=== PATIENT | female | born 1945 | race Caucasian/White ===

== ENCOUNTER → 2021-06-20 | Outpatient (CLI) | payer MEDICARE | END | disposition home or self-care (01) | LOC: LABPAT 11:33 | PROVIDERS: ATTEND Orthopaedic Surgery | DX: Z01.812 Encounter for preprocedural laboratory examination (principal); M16.11 Unilateral primary osteoarthritis, right hip | CPT/HCPCS: 87070 ==

== ENCOUNTER 2021-07-01 11:17 | Day surgery (SDC) | payer MEDICARE ==
[2021-06-26 08:29] VITALS: BMI 28.3
--- NOTE | 2021-06-30 11:30 | HP ---
HISTORY AND PHYSICAL DATE OF SURGERY: 07/01/2021 Minda Tyler is a 76-year-old patient seen with symptomatic right hip osteoarthritis. After we had treatment options discussed with her, she elected to proceed with direct anterior right total hip arthroplasty. Consent was obtained. Medical clearance was provided by Dr. Peterson. PAST MEDICAL HISTORY: Hypertension, hyperlipidemia. PAST SURGICAL HISTORY: Left total hip arthroplasty, ORIF left ankle, appendectomy, tonsillectomy, hysterectomy, cataract surgery. DAILY MEDICATIONS: Hydrochlorothiazide, Pravachol, multivitamin. ALLERGIES: CODEINE, SULFA. SOCIAL HISTORY: She denies tobacco use. PHYSICAL EVALUATION OF THE RIGHT HIP: She has limited range of motion with severe pain. Positive hip impingement sign. Straight-leg raise negative. Distal neurovascular exam is intact. Radiographs of the right hip reveal severe osteoarthritic changes. IMPRESSION: 1. Right hip osteoarthritis. 2. Hypertension. 3. Hyperlipidemia. PLAN: Direct anterior right total hip arthroplasty. MMODL / IJN: [id number] /
[~2021-07-01 11:17] MED LIST: ACETAMINOPHEN TAB 500 MG TAB PO PRN; MELOXICAM 7.5 MG TAB PO PRN; ROPIVACAINE/EPI/CLONIDINE/KET 50 ML SYRINGE MISCELLANE PRN; TRANEXAMIC ACID 1,000 MG in SODIUM CHLORIDE 0.9% 100 ML IVPB PRN
[2021-07-01] MEDS ORDERED: ONDANSETRON 4 MG/2 ML VIAL ONE (12:17)
[2021-07-01] MEDS ORDERED: LACTATED RINGERS 1,000 ML IV ONE ×4 (12:23→15:15)
[2021-07-01] MEDS ORDERED: ONDANSETRON 4 MG/2 ML VIAL IVP ONE (12:24)
[2021-07-01] MEDS ORDERED: DEXAMETHASONE SOD PHOSPHATE 4 MG/ML 1 ML VIAL IVP ONE (12:24)
[2021-07-01] MEDS ORDERED: fentaNYL (PF) 50 MCG/ML 2 ML AMP ONE (12:47)
[2021-07-01] MEDS ORDERED: LIDOCAINE 1% INJ 10MG/ML (20 ML MDV) ONE (12:47)
[2021-07-01] MEDS ORDERED: ROCURONIUM 10 MG/ML (5 ML VIAL) IV ONE (12:47)
[2021-07-01] MEDS ORDERED: HYDROmorphone (PF) 1 MG/ML ONE (12:47)
[2021-07-01] MEDS ORDERED: SUCCINYLCHOLINE CHLORIDE 100 MG/5 ML SYR IV ONE (12:47)
[2021-07-01] MEDS ORDERED: NEOSTIGMINE 1 MG/ML 10 ML VIAL ONE (12:47)
[2021-07-01] MEDS ORDERED: GLYCOPYRROLATE 0.2 MG/ML 2 ML VIAL ONE (12:47)
[2021-07-01] MEDS ORDERED: PROPOFOL 10 MG/ML 20 ML VIAL IV ONE (12:47)
[2021-07-01] MEDS ORDERED: ceFAZolin 1,000 MG in SODIUM CHLORIDE 0.9% 1,000 ML IRRIGATION ONE (13:18)
--- NOTE | 2021-07-01 14:28 | FL ---
Fluoroscopy HISTORY: Anterior hip replacement 10 seconds fluoroscopy time supplied to the referring clinician. 2 intraoperative C-arm images docum ent the procedure. See dictated report from orthopedic surgery.
--- NOTE | 2021-07-01 14:31 | P.OP ---
Date of Procedure: 07/01/21 Preoperative Diagnosis: Right hip osteoarthritis Postoperative Diagnosis: Right hip osteoarthritis Procedure(s) Performed: Direct anterior right total hip arthroplasty Implants: 1. Depuy Corail size 12 KA with collar press-fit femoral stem 2. Depuy pinnacle 60 mm multi-hole press-fit acetabular shell 3. Depuy pinnacle polyethylene acetabular liner +4 neutral 36 mm ID 60 mm OD 4. Biolox delta ceramic femoral head +1.5 36 mm Anesthesia: LUCRETIAA, local Surgeon: David Lee Reconciliation Accountant #1: Everette Freitas Estimated Blood Loss (ml): 125 Pathology: other (Femoral head) Condition: stable Disposition: PACU Indications for Procedure: 76-year-old patient seen with symptomatic right hip osteoarthritis. After treatment options were discussed, she elected to proceed with total hip arthroplasty. Operative Findings: see description of procedure Description of Procedure: The patient was taken to the operative suite. Patient underwent a general anesthetic by the department of anesthesia. Patient was then transferred to the [place] table. Patient was given preoperative IV antibiotics and TXA. Both lower extremities were placed in standard leg spars. The hip was then prepped and draped in the normal sterile orthopedic fashion. A standard anterior incision was made beginning 3 cm lateral and 1 cm distal to the ASIS extending 10 cm. Dissection was then carried down through the subcutaneous soft tissues down to the fascia overlying the tensor fascia johanna. An incision was now made through the fascia. Careful dissection was taken down exposing the tensor fascia johanna muscle. A Cobra retractor was now placed along the medial femoral neck and a second one along the lateral femoral neck. The venous circumflex vessels were now identified, cauterized and clipped. We identified the anterior hip capsule. An incision was made through the hip capsule along the lateral border. I performed a partial anterior capsulectomy. Retractors were now placed around the femoral neck itself. A femoral neck cut was now made with a sagittal saw. It was completed with an osteotome at the lateral neck area. The femoral head was now removed without difficulty. The extremity was now rotated to 60 of external rotation. It was locked in position. Residual labrum was now debrided out. Serial reaming was performed of the acetabulum while Everette MENDEZ assisted holding an anterior retractor for exposure. Once we reached the appropriate size and a trial was position and fit nicely. The appropriate size was now chosen opened and made available. It was introduced into the acetabulum without difficulty. The C-arm/fluoroscopy was now brought into the operative field. We made sure we had a true AP pelvic view. We now under direct C- arm/fluoroscopy introduced into the acetabular component with appropriate version and inclination. I held the cup in appropriate position well Ricardo MENDEZ used a mallet to seat the acetabular component. I noted the component now to be well seated and stable. Acetabular cup introduce her was removed. The C-arm was pulled back. An appropriate liner was introduced and clicked into position. It was felt to be stable. At this point retractors were removed. The extremity was now placed into 140 external rotation with no traction. The leg was now dropped to the ground and adducted. Appropriate retractors were now positioned along the proximal femur. We also placed our femoral look into position. Additional capsular releasing was performed to gain access to the proximal femur. We now used a box osteotome. A canal finder was now utilized. Serial broaching was now performed with the assistance of Everette MENDEZ tapping the broaches down with a mallet while held the broach in appropriate rotation and position. This was done until we reached the appropriate size with good overall rotational stability. Appropriate calcar planing was performed. A trial head/neck was placed into position. The hip was now reduced. The C- arm/fluoroscopy was brought back into the operative field. I obtained an AP pelvis demonstrating reasonable leg length alignment. The trial components appeared appropriately sized and adequate position The C-arm/fluoroscopy was pulled back. Retractors were repositioned and the hip was dislocated. The leg was again taken down to the ground and adducted. Appropriate retractors were repositioned as well as the femoral hook. All trial components were removed. The femoral implant was opened along with the femoral head. The femoral implant was introduced on the appropriate handle into our pre-broached area. I held the component position while Everette MENDEZ used a mallet to seat the femoral component. The femoral component was now noted to be well seated and stable.. The femoral head was introduced with good positioning and fixation noted. Retractors were now removed. The hip was now reduced. There appeared be good positioning of the hip confirmed on intraoperative fluoroscopy. Spot films were obtained to document this. A second gram of TXA was given. The deep and superficial soft tissues were infiltrated with local analgesic. Bipolar cautery had been utilized intermittently through the procedure for hemostasis. The wound was irrigated copiously with pulse lavage mechanical irrigation. The fascia was repaired with Vicryl suture. The subcutaneous soft tissues were repaired in layers with Vicryl suture. The skin was approximated with pernio/Dermabond. Sterile dressings were applied. Patient was then awakened, transferred to a bed and taken to recovery in stable condition. Everette MENDEZ assisted with the complex procedure.
[2021-07-01] MEDS ORDERED: HYDROmorphone 0.5 MG/0.5 ML SYRINGE IVP PRN ×2 (14:32)
[2021-07-01] MEDS ORDERED: HYDROcodone/APAP 5-325MG 1 EACH TAB PO PRN ×2 (14:32)
[2021-07-01] MEDS ORDERED: ONDANSETRON 4 MG/2 ML VIAL IVP PRN (14:32)
[2021-07-01] MEDS ORDERED: NALOXONE 0.4 MG/ML 1 ML VIAL IV PRN (14:32)
[2021-07-01] MEDS ORDERED: HYDROmorphone 0.2 MG/1 ML SYRINGE IM PRN (14:32)
[2021-07-01] MEDS ORDERED: HYDROmorphone 0.5 MG/0.5 ML SYRINGE IVP ONE (15:08)
[2021-07-01] MEDS ORDERED: hydrALAZINE HCL 20 MG/ML 1 ML VIAL IVP ONE (16:48)
[2021-07-01] MEDS ORDERED: hydrALAZINE HCL 20 MG/ML 1 ML VIAL ONE (16:50)
[2021-07-01] MEDS ORDERED: LACTATED RINGERS 1,000 ML IV SCH (18:01)
[2021-07-01 18:36] VITALS: RESP 18
[2021-07-01 19:16] LABS: Glucose,Whole Blood 142 mg/dL (75-99)
--- NOTE | 2021-07-01 23:40 | P.CONS ---
History of Present Illness - Reason for Consult Consult date: 07/01/21 post op medical management Requesting physician: David Lee - Chief Complaint hip surgery - History of Present Illness 76 year old female with hypertension patient presented for scheduled right total hip arthroplasty , tolerated procedure well, no observed immediate post op complications. denies any chest pain , trouble breathing, nausea , vomiting, abd pain . right hip pain is well controlled and tolerated. she currently denies any medical concerns Review of Systems Pertinent positives as noted in HPI. All other systems were reviewed and are negative Past Medical History Past Medical History: Hyperlipidemia, Hypertension, Osteoarthritis (OA) Additional Past Medical History / Comment(s): hx. of heart murmur History of Any Multi-Drug Resistant Organisms: None Reported Past Surgical History: Appendectomy, Hysterectomy, Joint Replacement, Tonsillectomy Additional Past Surgical History / Comment(s): ORIF left ankle, left hip replaced after fx., repair vag. prolapse, right anterior hip 07/01/21 Past Anesthesia/Blood Transfusion Reactions: No Reported Reaction Past Psychological History: No Psychological Hx Reported Smoking Status: Never smoker Past Alcohol Use History: Occasional Past Drug Use History: None Reported - Past Family History Mother Family Medical History: No Reported History Medications and Allergies Home Medications Medication Instructions Recorded Confirmed Type Cholecalciferol [Vitamin D3 (25 25 mcg PO DAILY 06/24/21 06/24/21 History Mcg = 1000 Iu)] Hydrochlorothiazide 12.5 mg PO DAILY 06/24/21 06/24/21 History [hydroCHLOROthiazide] Krill/Om-3/Dha/Epa/Phospho/Ast 1 each PO DAILY 06/24/21 06/24/21 History [Megared Jackson-3 Krill 750 mg] Multivitamins, Thera [Multivitamin 1 tab PO DAILY 06/24/21 06/24/21 History (formulary)] Pravastatin Sodium [Pravachol] 40 mg PO HS 06/24/21 06/24/21 History Aspirin [Adult Low Dose Aspirin EC] 81 mg PO BID #60 tab 07/01/21 Rx Docusate [Colace] 100 mg PO DAILY #30 capsule 07/01/21 Rx HYDROcodone/APAP 5-325MG [[place] 1 tab PO Q6HR PRN 3 Days #32 tab 07/01/21 Rx 5-325] Allergies Allergy/AdvReac Type Severity Reaction Status Date / Time Sulfa (Sulfonamide Allergy Rash/Hives Verified 07/01/21 11:54 Antibiotics) codeine AdvReac Nausea & Verified 07/01/21 11:54 Vomiting Physical Exam Vitals: Vital Signs Temp Pulse Resp BP Pulse Ox 07/01/21 18:34 96.0 F L 78 18 145/74 100 07/01/21 18:11 52 L 16 141/68 95 07/01/21 17:30 52 L 16 152/68 07/01/21 17:10 52 L 16 142/66 98 07/01/21 16:55 51 L 16 176/87 97 07/01/21 16:40 49 L 16 206/86 98 07/01/21 16:16 47 L 16 160/67 94 L 07/01/21 16:01 49 L 16 154/66 95 07/01/21 15:46 73 16 167/72 100 07/01/21 15:31 48 L 16 157/71 100 07/01/21 15:16 51 L 16 196/81 100 07/01/21 15:01 65 18 184/79 100 07/01/21 14:46 96.8 F L 66 12 153/73 96 07/01/21 12:25 186/93 07/01/21 12:21 98.0 F 76 16 193/94 100 Intake and Output 07/01/21 07/01/21 07/01/21 06:59 14:59 22:59 Intake Total 951 400 Output Total 125 Balance 826 400 Intake: IV 951 400 Output: Estimated Blood Loss 125 Other: Weight 87.5 kg Constitutional: No acute distress, conversant, pleasant Eyes: Anicteric sclerae, moist conjunctiva, Pupils equal round reactive to light ENMT: NC/AT Oropharynx clear, no erythema, or exudates Neck: Supple, no masses, or JVD No carotid bruits No thyromegaly Lungs: Clear to auscultation Clear to percussion Normal respiratory effort, no accessory muscle use Cardiovascular: Heart regular in rate and rhythm, soft murmurs, no gallops, or rubs No peripheral edema Abdominal: Soft Nontender, no guarding, rebound or rigidity Abdomen moving with respiration Normoactive bowel sounds No hepatomegaly, No splenomegaly No palpable mass No abdominal wall hernia noted Skin: Normal temperature, tone, texture, turgor No induration No subcutaneous nodules No rash, lesions No ulcers Extremities: No digital cyanosis No clubbing Pedal pulses intact and symmetrical Radial pulses intact and symmetrical No calf tenderness Psychiatric: Alert and oriented to person, place and time Appropriate affect fair judgement Neuro Muscles Strength 5/5 in bilateral upper extremities, and left lower extremity, right lower leg exam limited to surgery Sensation to light touch grossly present throughout Cranial nerves II-XII grossly intact No focal sensory deficits Lymphatics: no palpable cervical or supraclavicular , or inguinal lymph nodes Results Labs: Abnormal Lab Results - Last 24 Hours (Table) 07/01/21 Range/Units 19:14 POC Glucose (mg/dL) 142 H (75-99) mg/dL Assessment and Plan Assessment: Right total hip arthroplasty status post surgery postoperative day 0 Pain control and DVT prophylaxis per orthopedics Hypertension resume home blood pressure meds hydrochlorothiazide Hyperlipidemia resume statin Follow-up CBC and BMP in the morning Thank you for allowing us to participate in the care of this patient. Do not hesitate to contact us with questions. Someone can be reached from the [facility] hospitalist group at all hours of the day at [phone].
[2021-07-02] MEDS ORDERED: HYDROmorphone 0.5 MG/0.5 ML SYRINGE IVP PRN (07:00)
--- NOTE | 2021-07-02 08:41 | P.PN ---
Subjective Progress Note Date: 07/02/21 Principal diagnosis: Right hip osteoarthritis Patient was seen at bedside this morning resting comfortably lying semirecumbent in bed. Patient says she is feeling good this morning. Patient says she is wanting to go home. Patient says she does have a walker at home. She says she does get up this morning to the bathroom and felt okay walking around. Patient denies any lightheadedness/dizziness. Patient says she is not in any pain and has not taken any pain medication. Patient has not had bowel movement yet. Patient got up with physical therapy yesterday in recovery and did well, however, patient was somewhat lightheaded/dizzy at that time. Patient denies chest pain, fever, shortness breath, nausea,, loss bowel/bladder control. Objective - Vital Signs Vital signs: Vital Signs Temp 98.4 F 07/02/21 07:39 Pulse 86 07/02/21 07:39 Resp 18 07/02/21 07:39 BP 129/66 07/02/21 07:39 Pulse Ox 99 07/02/21 07:39 Intake & Output 07/01/21 07/02/21 07/02/21 18:59 06:59 18:59 Intake Total 1351 Output Total 125 Balance 1226 Weight 87.5 kg 87.5 kg Intake: IV 1351 Output: Estimated Blood Loss 125 Other: Voiding Method Toilet - Exam Right hip: Incision is clean, dry, and intact. The silver foam dressing is in good condition. There is minimal soft tissue swelling and ecchymosis surrounding the medial and lateral aspects of the incision. Calf is soft, no tenderness with palpation. Plantar flexion, dorsiflexion, EHL, FHL are intact. Sensory exam to light touch throughout the extremity is intact, dorsal pedis pulses 2+. - Labs Labs: Abnormal Lab Results - Last 24 Hours (Table) 07/01/21 Range/Units 19:14 POC Glucose (mg/dL) 142 H (75-99) mg/dL Assessment and Plan Assessment: Right hip osteoarthritis Postoperative day #1 status post right total hip arthroplasty Plan: 1. Right hip osteoarthritis - right total hip arthroplasty performed yesterday, 07/01/2021. Patient stable at bedside this morning. Plan discharge home today with health services 2. Appreciate medical management 3. Pain management - [place] 4. DVT prophylaxis - Lovenox in hospital. Going home with aspirin 81 mg twice a day 30 days 5. GI prophylaxis - going home with Colace 6. PT/OT - weightbearing as tolerated with walker for assistance 7. Encourage incentive spirometer use 8. Discharge planning - plan discharge home today with health services Time with Patient: Less than 30
[2021-07-02 08:59] LABS: HCT 35.5 % (34.0-46.0); HGB 11.7 gm/dL (11.4-16.0); MCH 30.2 pg (25.0-35.0); MCHC 32.9 g/dL (31.0-37.0); MCV 91.7 fL (80.0-100.0); Platelet Count 192 k/uL (150-450); RBC 3.87 m/uL (3.80-5.40); WBC 9.7 k/uL (3.8-10.6)
[2021-07-02] MEDS ORDERED: ENOXAPARIN 30 MG/0.3 ML SYRINGE SQ SCH (09:00)
[2021-07-02] MEDS ORDERED: hydroCHLOROthiazide 12.5 MG CAP PO SCH (09:00)
[2021-07-02 09:13] LABS: AST 37 U/L (14-36); African American GFR (CKD) >90 (>60 ml/min/1.73 sqM); Albumin/Globulin Ratio 1.1; Alkaline Phosphatase 48 U/L (38-126); Anion Gap 6 mmol/L; Blood Urea Nitrogen 18 mg/dL (7-17); Calcium 8.6 mg/dL (8.4-10.2); Carbon Dioxide 24 mmol/L (22-30); Chloride 101 mmol/L (98-107); Globulin 2.8 g/dL; Glucose 119 mg/dL (74-99); Magnesium 1.8 mg/dL (1.6-2.3); Non-African American GFR(CKD) 85 (>60 ml/min/1.73 sqM); Potassium 4.1 mmol/L (3.5-5.1); Sodium 131 mmol/L (137-145); Total Bilirubin 0.7 mg/dL (0.2-1.3); Total Protein 5.8 g/dL (6.3-8.2)
[2021-07-02 09:19] LABS: ALT 28 U/L (4-34)
--- NOTE | 2021-07-02 11:22 | P.PN ---
<Gabriel Campoverde - Last Filed: 07/02/21 16:43> Subjective Progress Note Date: 07/02/21 Hospital course: Patient is a very pleasant 76-year-old female with a past medical history of hypertension, hyperlipidemia and osteoarthritis. She is currently admitted under orthopedic surgery team status post right total hip arthroplasty. We have been consulted to follow along for continued medical management throughout patient's hospitalization. Physical exam: Patient was seen and fully evaluated at the bedside this morning. She was sitting up in the chair and appeared to be doing well. Patient reports pain is controlled and right hip and denies having any numbness/tingling/weakness of her right lower extremity. Patient also reports having a good appetite with no postoperative nausea or vomiting. Patient reports she has been ambulatory with walker to and from restroom without any difficulties. Morning labs reviewed showing mild hyponatremia with sodium of 131 otherwise no significant abnormal ities. Postoperative hemoglobin stable at 11.7. Vital signs reviewed and stable. General: Nontoxic, no distress and appears stated age. Derm: Skin warm and dry, normal coloration for ethnicity. Head: Atraumatic, normocephalic and symmetric. Eyes: EOMs intact, no lid lag, and anicteric sclera Mouth: no lip lesions, mucus membranes moist Cardiovascular: regular rate and rhythm with normal S1S2, no murmur, positive posterior tibial pulses bilaterally, and cap refill < 2 seconds. Lungs: Respirations even, regular, and unlabored on room air. Lungs CTA bilaterally, no rhonchi, no rales, no wheezing, and no accessory muscle usage. Abdominal: soft, nontender to palpation, no guarding, no appreciable organomegaly Ext: ROM intact. No gross muscle atrophy, no edema, no contractures Neuro: Speech clear, face symmetrical and CN II-XII grossly intact with no noted focal neuro deficits Psych: Alert and oriented to person, place, time, and situation. Appropriate and pleasant affect. Assessment and Plan of Care: Status post an anterior right total hip arthroplasty completed on 07/01/[address] Lee -Management per primary orthopedic surgery team. -PT/OT, weightbearing, pain management, wound care, and DVT prophylaxis per primary admitting orthopedic surgery team. Hypertension -Monitor vital signs and continue daily medication regimen with hydrochlorothiazide. Hyperlipidemia -Continue daily medication regimen with pravastatin. Thank you for allowing us to participate in the care of this pleasant patient. Do not hesitate to contact us with questions. Someone can be reached from the [facility] hospitalist group all hours of the day at [phone] or via perfect serve. Objective - Vital Signs Vital signs: Vital Signs Temp 98.4 F 07/02/21 07:39 Pulse 86 07/02/21 07:39 Resp 18 07/02/21 07:39 BP 129/66 07/02/21 07:39 Pulse Ox 99 07/02/21 07:39 Intake & Output 07/01/21 07/02/21 07/02/21 18:59 06:59 18:59 Intake Total 1351 Output Total 125 Balance 1226 Weight 87.5 kg 87.5 kg Intake: IV 1351 Output: Estimated Blood Loss 125 Other: Voiding Method Toilet Toilet - Labs CBC & Chem 7: 07/02/21 08:40 07/02/21 08:40 Labs: Abnormal Lab Results - Last 24 Hours (Table) 07/01/21 07/02/21 Range/Units 19:14 08:40 Sodium 131 L (137-145) mmol/L BUN 18 H (7-17) mg/dL Glucose 119 H (74-99) mg/dL POC Glucose (mg/dL) 142 H (75-99) mg/dL AST 37 H (14-36) U/L Total Protein 5.8 L (6.3-8.2) g/dL Albumin 3.0 L (3.5-5.0) g/dL <Shiloh Franklin - Last Filed: 07/03/21 07:59> Subjective I reviewed the documentation as provided by the ASHU above, who is the original author of this note. I agree with the documented assessment and plan, with the following changes: none Objective - Vital Signs Vital signs: Vital Signs Temp 98.1 F 07/02/21 14:00 Pulse 84 07/02/21 14:00 Resp 18 07/02/21 14:00 BP 112/66 07/02/21 14:00 Pulse Ox 97 07/02/21 14:00 Intake & Output 07/02/21 07/03/21 07/03/21 18:59 06:59 18:59 Other: Voiding Method Toilet - Labs CBC & Chem 7: 07/02/21 08:40 07/02/21 08:40 Labs: Abnormal Lab Results - Last 24 Hours (Table) 07/02/21 Range/Units 08:40 Sodium 131 L (137-145) mmol/L BUN 18 H (7-17) mg/dL Glucose 119 H (74-99) mg/dL AST 37 H (14-36) U/L Total Protein 5.8 L (6.3-8.2) g/dL Albumin 3.0 L (3.5-5.0) g/dL
--- NOTE | 2021-07-02 14:46 | P.DS ---
Providers Date of admission: Right hip osteoarthritis Expected date of discharge: 07/02/21 Attending physician: David Lee Consults: 07/01/21 18:36 Consult Physician Routine Consulting Provider: Venessa Thrasher Consult Reason/Comments: Medical Management s/p right total hip arthroplasty Do you want consulting provider notified?: Yes Primary care physician: Cha Peterson [facility] Course: Date of admission: 07/01/2021 Date of discharge: 07/02/2021 Admission diagnosis: Right hip osteoarthritis Discharge diagnosis: Same Attending physician: Dr. Dr. Lee Surgical procedures: Right total hip arthroplasty Brief history: Patient is a 76-year-old female with a history of progressive primary right hip osteoarthritis. At this point patient has failed conservative treatment measures and has opted to proceed with a elective right total hip arthroplasty. Hospital course: Details of patient's surgery can be found in operative report. Patient tolerated the procedure well and was subsequently transported to orthopedic floor. Patient's orthopeidc and medical care was provided daily. Patient had daily laboratory tests performed for evaluation of overall blood counts. Patient had daily physical therapy to include strengthening range of motion as well as education with walker ambulation. Patient was treated with Lovenox for their postoperative DVT prophylaxis during their inpatient stay. Patient was noted to have a relatively uneventful postoperative course. Patient reported satisfactory pain control with oral pain medications by postoperative day 1. Patient showed satisfactory progress with physical therapy. Patient moved steadily through the program and had no difficulty meeting the goals by postoperative day 1. Given patient's otherwise satisfactory course and having met physical therapy goals, plan is to discharge patient home on postoperative day 1. Discharge condition/disposition: Patient will be discharged home in stable condition. Discharge medications: Instructions are given on resumption of patient's normal daily medications per primary care recommendation, in addition patient will be prescribed [place]; aspirin 81 mg twice a day 30 days; Colace. Discharge instructions: 1. Wound care and infection precautions, keep incision dry and covered while showering, no lotions, creams, moisturizers. No soaking, tubs, pools, hottubs. Do not scrub over the incision. 2. Weight-bear as tolerated with walker / cane until follow-up. 3. Ice and elevate when necessary. Do not exceed 20 minutes per hour with ice pack. 4. Utilize compression sleeve until seen at first follow up appointment. 5. Visiting nursing care. 6. Home physical therapy. 7. Pain meds and anticoagulants per prescription. 8. Pain medication has potential to cause constipation. Increase oral fluid and fiber intake. Contact primary care provider if you have not had a bowel movement within 48 hours after discharge 9. No anti-inflammatory medication until discussed at first post operative visit, this including Motrin, Aleve, Mobic, Diclofenac. 10. Follow up in office at 2 weeks postop with Ricardo Keller PA-C / Everette Freitas PA-C 11. Follow up with your primary care doctor 7-10 days after discharge. 12. Contact [facility] with any questions, . Keep incision clean, dry, intact. Keep silver foam dressing on for 7 days. While showering, cover silver foam dressing with Saran wrap. Silver foam dressing may be removed on 07/08/2021 Medications: Aspirin 81 mg BID x 30 days; [place]; Colace Assessment: Right hip osteoarthritis Procedures: Right total hip arthroplasty Patient Condition at Discharge: Good Plan - Discharge Summary Discharge Rx Participant: No New Discharge Prescriptions: New Aspirin [Adult Low Dose Aspirin EC] 81 mg PO BID #60 tab Docusate [Colace] 100 mg PO DAILY #30 capsule HYDROcodone/APAP 5-325MG [[place] 5-325] 1 tab PO Q6HR PRN 3 Days #32 tab PRN Reason: Pain No Action Multivitamins, Thera [Multivitamin (formulary)] 1 tab PO DAILY Hydrochlorothiazide [hydroCHLOROthiazide] 12.5 mg PO DAILY Pravastatin Sodium [Pravachol] 40 mg PO HS Cholecalciferol [Vitamin D3 (25 Mcg = 1000 Iu)] 25 mcg PO DAILY Krill/Om-3/Dha/Epa/Phospho/Ast [Megared [place]-3 Krill 750 mg] 1 each PO DAILY Discharge Medication List Cholecalciferol [Vitamin D3 (25 Mcg = 1000 Iu)] 25 mcg PO DAILY 06/24/21 [History] Hydrochlorothiazide [hydroCHLOROthiazide] 12.5 mg PO DAILY 06/24/21 [History] Krill/Om-3/Dha/Epa/Phospho/Ast [Megared [place]-3 Krill 750 mg] 1 each PO DAILY 06/24/21 [History] Multivitamins, Thera [Multivitamin (formulary)] 1 tab PO DAILY 06/24/21 [History] Pravastatin Sodium [Pravachol] 40 mg PO HS 06/24/21 [History] Aspirin [Adult Low Dose Aspirin EC] 81 mg PO BID #60 tab 07/01/21 [Rx] Docusate [Colace] 100 mg PO DAILY #30 capsule 07/01/21 [Rx] HYDROcodone/APAP 5-325MG [[place] 5-325] 1 tab PO Q6HR PRN 3 Days #32 tab 07/01/21 [Rx] Follow up Appointment(s)/Referral(s): Jame Keller PAC [PHYSICIAN [facility]] - 2 Weeks Activity/Diet/Wound Care/Special Instructions: Discharge instructions: 1. Wound care and infection precautions, keep incision dry and covered while showering, no lotions, creams, moisturizers. No soaking, tubs, pools, hottubs. Do not scrub over the incision. 2. Weight-bear as tolerated with walker / cane until follow-up. 3. Ice and elevate when necessary. Do not exceed 20 minutes per hour with ice pack. 4. Utilize compression sleeve until seen at first follow up appointment. 5. Visiting nursing care. 6. Home physical therapy. 7. Pain meds and anticoagulants per prescription. 8. Pain medication has potential to cause constipation. Increase oral fluid and fiber intake. Contact primary care provider if you have not had a bowel movement within 48 hours after discharge 9. No anti-inflammatory medication until discussed at first post operative visit, this including Motrin, Aleve, Mobic, Diclofenac. 10. Follow up in office at 2 weeks postop with Ricardo Keller PA-C / Everette Freitas PA-C 11. Follow up with your primary care doctor 7-10 days after discharge. 12. Contact [facility] with any questions, . Keep incision clean, dry, intact. Keep silver foam dressing on for 7 days. While showering, cover silver foam dressing with Saran wrap. Silver foam dressing may be removed on 07/08/2021 Medications: Aspirin 81 mg BID x 30 days; [place]; Colace Discharge Disposition: HOME WITH HOME HEALTH SERVICES
[2021-07-02 15:04] VITALS: BP 112/66; PULSE 84; TEMP 98.1
[2021-07-02] MEDS ORDERED: PRAVASTATIN SODIUM 40 MG TAB PO SCH (21:00)
== END 2021-07-02 15:54 | disposition home health service (06) ==
LOC: OR 11:17 → 4SSUR 14:41 → OR 07-02 15:54
PROVIDERS: ATTEND Orthopaedic Surgery
DX: M16.11 Unilateral primary osteoarthritis, right hip (principal); I10 Essential (primary) hypertension; E78.5 Hyperlipidemia, unspecified; Z96.642 Presence of left artificial hip joint; Z79.899 Other long term (current) drug therapy; Z88.5 Allergy status to narcotic agent; Z88.2 Allergy status to sulfonamides; Z90.49 Acquired absence of other specified parts of digestive tract; Z90.89 Acquired absence of other organs; Z90.710 Acquired absence of both cervix and uterus; Z98.890 Other specified postprocedural states; Z98.49 Cataract extraction status, unspecified eye
CPT/HCPCS: 97116; 97161; 86900; 86901; 80053; 83735; 85027; 86850; 88300; 87635; 73501; 36415; 27130; C1776; J0360; J1100; J0690 ×2; J2405; J1170

== ENCOUNTER → 2021-10-25 | Outpatient (CLI) | payer MEDICARE ==
[2021-10-25 19:12] LABS: Basophils # (A) 0.03 X 10*3/uL (0.00-0.10); Basophils % (A) 0.5 %; Eosinophils # (A) 0.11 X 10*3/uL (0.04-0.35); Eosinophils % (A) 1.7 %; HCT 41.4 % (37.2-46.3); Immature Grans, Automated 0.3 %; Lymphocytes # (A) 2.32 X 10*3/uL (0.90-5.00); Lymphocytes % (A) 35.5 %; MCH 26.8 pg (27.0-32.0); MCHC 31.4 g/dL (32.0-37.0); MCV 85.4 fL (80.0-97.0); Mean Platelet Volume 9.6 fL (9.5-12.2); Monocytes # (A) 0.94 X 10*3/uL (0.20-1.00); Monocytes % (A) 14.4 %; NRBC Per 100 WBC 0 /100 WBCS (0.0-0.0); Neutrophils # (A) 3.12 X 10*3/uL (1.80-7.70); Neutrophils % (A) 47.6 %; Platelet Count 275 X 10*3/uL (140-440); RBC 4.85 X 10*6/uL (4.10-5.20); RDW 14.1 % (11.5-14.5); WBC 6.54 X 10*3/uL (4.50-10.00)
[2021-10-25 19:41] LABS: INR 0.96 (0.90-1.11); Prothrombin Time 10.6 sec (9.9-11.9)
[2021-10-25 20:30] LABS: African American GFR (CKD) 88.9 (60.0-200.0); BUN/Creat Ratio 30.82 Ratio (12.00-20.00); Blood Urea Nitrogen 23.3 mg/dL (9.0-27.0); Calcium 9.4 mg/dL (8.7-10.3); Carbon Dioxide 25.1 mmol/L (20.0-27.5); Non-African American GFR(CKD) 76.7 (60.0-200.0); Potassium 4.3 mmol/L (3.5-5.5)
== END | disposition home or self-care (01) ==
LOC: LABPAT 11:53
PROVIDERS: ATTEND Orthopaedic Surgery
DX: Z01.812 Encounter for preprocedural laboratory examination (principal); M17.11 Unilateral primary osteoarthritis, right knee; Z22.322 Carrier or suspected carrier of Methicillin resistant Staphylococcus aureus
CPT/HCPCS: 36415; 80048; 85025; 85610; 87070

== ENCOUNTER 2021-11-11 10:42 | Day surgery (SDC) | payer MEDICARE ==
[2021-11-06 15:08] VITALS: BMI 27.7
--- NOTE | 2021-11-10 13:52 | HP ---
HISTORY AND PHYSICAL DATE OF SURGERY: 11/11/2021 Minda Tyler is a 76-year-old patient seen with symptomatic right knee osteoarthritis. We discussed options for treatment. She elected to proceed with right total knee arthroplasty. Consent was obtained. PAST MEDICAL HISTORY: Hyperlipidemia, hypertension. PAST SURGICAL HISTORY: Appendectomy, ankle surgery, hysterectomy, tonsillectomy. DAILY MEDICATIONS: Hydrochlorothiazide, pravastatin. ALLERGIES: CODEINE AND SULFA. SOCIAL HISTORY: She denies tobacco use. PHYSICAL EVALUATION OF THE RIGHT KNEE: Her range of motion is negative 4 to 115. Mild effusion. Tenderness, medial joint line. Crepitus, medial and patellofemoral compartments with range of motion. Pain with patellofemoral compression. Ligaments stable. Hip rotation is without pain. Her distal neurovascular exam is intact. Right knee radiographs reveal severe osteoarthritic changes. IMPRESSION: 1. Right knee osteoarthritis. 2. Hypertension. 3. Hyperlipidemia. PLAN: Right total knee arthroplasty. MMODL / IJN: [id number] /
[~2021-11-11 10:42] MED LIST changes: +LIDOCAINE 1% (10MG/ML) FOR IV START INTRADERMA PRN; +ONDANSETRON 4 MG/2 ML VIAL IVP ONE; -ROPIVACAINE/EPI/CLONIDINE/KET 50 ML SYRINGE MISCELLANE PRN; -TRANEXAMIC ACID 1,000 MG in SODIUM CHLORIDE 0.9% 100 ML IVPB PRN; +TRANEXAMIC ACID IN NACL,ISO-OS 1,000 MG in SALINE 1 100ML.BAG IVPB PRN; +fentaNYL (PF) 50 MCG/ML 2 ML AMP IV PRN
[2021-11-11] MEDS: LACTATED RINGERS 1,000 ML IV SCH (11:48)
[2021-11-11] MEDS ORDERED: DEXAMETHASONE SOD PHOSPHATE 4 MG/ML 1 ML VIAL IV ONE (11:49)
[2021-11-11] MEDS ORDERED: MIDAZOLAM 2 MG/2 ML VIAL IV ONE (11:57)
[2021-11-11] MEDS ORDERED: fentaNYL (PF) 50 MCG/ML 2 ML AMP IV ONE (11:57)
[2021-11-11] MEDS ORDERED: LIDOCAINE 4% LTA KIT (4 ML) TOPICAL ONE (12:25)
[2021-11-11] MEDS ORDERED: SODIUM CHLORIDE 0.9% (PF) 10 ML VIAL ONE (12:25)
[2021-11-11] MEDS ORDERED: fentaNYL (PF) 50 MCG/ML 2 ML AMP ONE (12:25)
[2021-11-11] MEDS ORDERED: ROPIVACAINE 5 MG/ML 30 ML VIAL ONE (12:25)
[2021-11-11] MEDS ORDERED: PROPOFOL 10 MG/ML 20 ML VIAL IV ONE (12:25)
[2021-11-11] MEDS ORDERED: PHENYLEPHRINE-0.9% NACL SYG 1,000 MCG/10 ML SYRINGE ONE (12:25)
[2021-11-11] MEDS ORDERED: SUCCINYLCHOLINE CHLORIDE 100 MG/5 ML SYR IV ONE (12:25)
[2021-11-11] MEDS ORDERED: TRANEXAMIC ACID IN NACL,ISO-OS 1,000 MG/100 ML BAG ONE (12:25)
[2021-11-11] MEDS ORDERED: ceFAZolin 1,000 MG in SODIUM CHLORIDE 0.9% 1,000 ML IRRIGATION ONE (12:57)
--- NOTE | 2021-11-11 13:43 | P.ANPRN ---
Procedure Note - Anesthesia - Nerve Block Performed Right Adductor Canal Infusion Time Out Performed: Yes (1156) Date of Procedure: 11/11/21 Procedure Start Time: 11:57 Procedure Stop Time: 12:04 Location of Patient: PreOp Indication: Acute Post-Operative Pain, Requested by Surgeon Specifically requested for management of pain by DrGary: David Lee Sedation Type: Sedate with meaningful contact maintained Preparation: Sterile Prep, Sterile Dressing Position: Supine Catheter Depth at Skin (cm): 8 Catheter: Indwelling Needle Types: Pajunk Needle Gauge: 18 (15cc + 5cc nacl) Ultrasound used to visualize needle placement: Yes Ultrasound used to observe medication spread: Yes Injectate: 0.5% Ropivacaine (see comment for volume) (15cc + 5cc nacl) Blood Aspirated: No Pain Paresthesia on Injection Noted: No Resistance on Injection: Normal Image Stored and Saved: Yes Events: Uneventful and Well Tolerated
--- NOTE | 2021-11-11 13:44 | P.ANPRN ---
Procedure Note - Anesthesia - Nerve Block Performed Right iPack Single Time Out Performed: Yes (1156) Date of Procedure: 11/11/21 Procedure Start Time: 12:05 Procedure Stop Time: 12:07 Location of Patient: PreOp Indication: Acute Post-Operative Pain, Requested by Surgeon Specifically requested for management of pain by DrGary: David Lee Sedation Type: Sedate with meaningful contact maintained Preparation: Sterile Prep Position: Supine Catheter: None Needle Types: Pajunk Needle Gauge: 21 Ultrasound used to visualize needle placement: Yes Ultrasound used to observe medication spread: Yes Injectate: 0.5% Ropivacaine (see comment for volume) (15cc + 5cc nacl) Blood Aspirated: No Pain Paresthesia on Injection Noted: No Resistance on Injection: Normal Image Stored and Saved: Yes Events: Uneventful and Well Tolerated
[2021-11-11] MEDS ORDERED: LACTATED RINGERS 1,000 ML IV ONE ×2 (14:04)
[2021-11-11] MEDS ORDERED: NALOXONE 0.4 MG/ML 1 ML VIAL IV PRN (14:13)
[2021-11-11] MEDS ORDERED: HYDROmorphone 0.5 MG/0.5 ML SYRINGE IVP PRN ×2 (14:13)
[2021-11-11] MEDS ORDERED: HYDROcodone/APAP 5-325MG 1 EACH TAB PO PRN ×2 (14:13→21:24)
[2021-11-11] MEDS ORDERED: ONDANSETRON 4 MG/2 ML VIAL IVP PRN (14:13)
--- NOTE | 2021-11-11 14:13 | P.OP ---
Date of Procedure: 11/11/21 Preoperative Diagnosis: Right knee osteoarthritis Postoperative Diagnosis: Right knee osteoarthritis Procedure(s) Performed: Right total knee arthroplasty Implants: 1. Depuy attune size 6 right cruciate-retaining cemented femur 2. Depuy attune size 5 fixed bearing cemented tibial baseplate 3. Depuy attune size 6 fixed bearing cruciate retaining 10 mm polyethylene tibial insert 4. Depuy attune 38 mm all polyethylene cemented patella Anesthesia: GETA, regional (Adductor canal catheter, Ipack block) Surgeon: David Lee Buckle Inspector #1: Jame Keller Estimated Blood Loss (ml): 50 Pathology: other (Bone) Condition: stable Disposition: PACU Indications for Procedure: 76-year-old patient seen with symptomatic right knee osteoarthritis. After having treatment options discussed, she elected to proceed with right total knee arthroplasty. Operative Findings: See description of procedure Description of Procedure: Patient was taken to the operative suite after having an adductor canal catheter placed by the department of anesthesia as well as an Ipack block for postoperative pain management. Patient underwent a general anesthetic by the department of anesthesia. Patient was given preoperative IV intake antibiotics and TXA. A well-padded tourniquet was placed about the right lower extremity. The lower extremity was then prepped and draped in the normal sterile orthopedic fashion. The extremity was elevated, a tourniquet was insufflated to 300. A standard anterior incision was made sharply through skin. Dissection was taken down through the subcutaneous soft tissues down to the extensor mechanism. A medial arthrotomy was performed, patella was everted and knee was flexed. There was advanced osteoarthritis noted. I introduced my distal intramedullary femoral drill. I then introduced the distal femoral cutting jig. Ricardo MENDEZ secured the cutting jig with 2 pins. I held retractors in position while Ricardo MENDEZ performed the distal femoral resection through the guide area we now removed her distal femoral cutting guide. We now placed our 4-in-1 femoral cutting block and positioned and it was secured with 2 pins by Ricardo MENDEZ while I held the block in position. The distal femoral finishing was now completed. A proximal tibial cutting guide was positioned. I held the guide in the appropriate position with both hands well Ricardo MENDEZ inserted stabilizing pins into the guide. Proximal tibial cut was made. We now placed a trial femoral component into position, along with an appropriate size tibial tray and insert. We now took the knee through range of motion and had full extension good flexion and good overall soft tissue balance noted. The patella was everted and stabilized with 2 towel clips held by Ricardo MENDEZ while I performed a flush with patellar quad tendon utilizing a fresh sawblade. We templated the patella, appropriate drill holes were made. An appropriate trial patella was positioned, knee was taken through full range of motion with the patella tracking laterally. At this point I performed a lateral release. I now took the knee through range of motion noted of the patella now tracked midline. The trial patella was removed. Drill holes were made through the femoral component. All trial components were removed after marking off the appropriate rotation of the tibia. Retractors were now positioned along the proximal tibia. An appropriate keel punch was made with the appropriate size tibial guide by myself on Ricardo MENDEZ assisted by holding retractors. At this point appropriate size implants were chosen and opened. The joint was irrigated copiously with pulse lavage mechanical irrigation. The posterior capsule was infiltrated with local analgesic. The wound was irrigated with pulse lavage mechanical irrigation. We mixed antibiotic methylmethacrylate. We placed the knee into flexion. We placed multiple retractors assisted by Ricardo MENDEZ to expose the proximal tibia. Once the methyl methacrylate was ready, the tibial component was cemented into place removing any excess methylmethacrylate form by both myself and Ricardo MENDEZ. The femoral component was cemented into place removing the removing any excess methylmethacrylate performed by both myself and Ricardo MENDEZ. We then inserted the appropriate size polyethylene tibial insert. We made sure that it was locked into position. We took the knee into full extension, and then back in a flexion making sure we had removed any excess methylmethacrylate. The patellar component was then cemented down and secured with clamp. Excess methylmethacrylate removed. We kept the knee in full extension, patellar clamp in position until methylmethacrylate had hardened. Once it had hardened the patellar clamp was removed. The knee was taken through full range of motion. The patella tracked nicely. There was good soft tissue balancing. The tourniquet was now released. Additional hemostasis was achieved via electrocautery. A second gram of TXA was given. The wound again was irrigated with pulse lavage mechanical irrigation. The superficial soft tissues were infiltrated local analgesic. The extensor mechanism was repaired with Ethibond. We checked the repair with range of motion and it was stable. The subcutaneous soft tissues were repaired with Vicryl in layers. The skin was approximated with pernio/Dermabond. Sterile dressings were applied followed by loose web roll and Chip bandage. The patient was transferred to a bed, and taken to recovery in stable and satisfactory condition. Ricardo MENDEZ assisted with this complex procedure.
[2021-11-11] MEDS: HYDROmorphone 0.5 MG/0.5 ML SYRINGE IVP PRN ×2 (14:42→14:56)
[2021-11-11] MEDS ORDERED: hydrALAZINE HCL 20 MG/ML 1 ML VIAL IVP ONE (14:57)
[2021-11-11] MEDS ORDERED: ROPIVACAINE 0.2%-NS ON-Q PUMP 2 MG/ML EACH MISCELLANE ONE (14:58)
--- NOTE | 2021-11-11 14:58 | XR ---
Right knee Limited HISTORY: Postop right knee arthroplasty 2 views of the right knee Patient is status post right knee arthroplasty, there is anatomic alignment. Lucencies present within the soft tissues, there is soft tissue swelling. Bone mineralization is reduced. IMPRESSION: Orthopedic follow-up.
[2021-11-11] MEDS ORDERED: ROPIVACAINE 0.2%-NS ON-Q PUMP 1,090 MG, EMPTY PAIN BALL 1 EACH MISCELLANE PRN (14:59)
[2021-11-11] MEDS: SODIUM CHLORIDE 0.9% 1,000 ML IV SCH (16:16)
[2021-11-11] MEDS: HYDROcodone/APAP 5-325MG 1 EACH TAB PO PRN (16:55)
[2021-11-11] MEDS ORDERED: SENNOSIDES-DOCUSATE SODIUM 1 EACH TAB PO SCH (21:00)
--- NOTE | 2021-11-11 21:24 | P.CONS ---
History of Present Illness - Reason for Consult Consult date: 11/11/21 - Chief Complaint Medical management - History of Present Illness 76-year-old woman with medical history of hyperlipidemia, hypertension presented for elective left knee arthroplasty. Medicine consulted by orthopedic surgery for medical management. Patient has no complaints at this time is doing well after surgery. Patient denies fevers, chills, nausea, vomiting, chest pain, palpitations, syncope, presyncope, cough, dyspnea, abdominal pain, constipation, diarrhea, dysuria, dyschezia, numbness/weakness of extremities. Upon my evaluation, patient is afebrile, 154/79, heart rate 89, 98% on room air. No labs to review. Knee x-rays reviewed, which shows that patient is status post right knee arthroplasty with anatomic alignment, swelling surrounding the knee in the soft tissue. All Systems reviewed and pertinent positives and negatives noted in HPI, all other symptoms are negative Gen: awake, alert HEENT: normocephalic, atraumatic, good hearing acuity, moist mucous membranes Resp: good air exchange, breathing comfortably with no accessory muscle use CVS: good distal perfusion x 4, GI: soft, NTTP, ND : no SPT, no CVAT, lovell catheter not present MSK: no pitting edema, no clubbing Neuro: non-focal, moving all extremities Psych: cooperative, euthymic mood Labs and imaging as above Assessment/plan: Hypertension Hyperlipidemia -Resume home medications Left knee arthroplasty -Care per primary team Patient is full code DVT prophylaxis per primary team Thank you for this consult. A member of our team is available 12/01, should any questions or concerns arise, please reach out via perfect serve. Past Medical History Past Medical History: Hyperlipidemia, Osteoarthritis (OA) History of Any Multi-Drug Resistant Organisms: None Reported Past Surgical History: Joint Replacement, Orthopedic Surgery Additional Past Surgical History / Comment(s): ORIF left ankle, left hip replaced after fx., repair vag. prolapse, right anterior hip replacement 07/01/21, jorge cataracts Past Anesthesia/Blood Transfusion Reactions: Previous Problems w/ Anesthesia Additional Past Anesthesia/Blood Transfusion Reaction / Comm: "room was spinning after hip replacement 06/2021" Past Psychological History: No Psychological Hx Reported Smoking Status: Never smoker Past Alcohol Use History: Rare Past Drug Use History: None Reported - Past Family History Daughter(s) Family Medical History: Cancer Medications and Allergies Home Medications Medication Instructions Recorded Confirmed Type Cholecalciferol [Vitamin D3 (25 25 mcg PO DAILY 06/24/21 11/06/21 History Mcg = 1000 Iu)] Hydrochlorothiazide 12.5 mg PO DAILY 06/24/21 11/06/21 History [hydroCHLOROthiazide] Krill/Om-3/Dha/Epa/Phospho/Ast 1 each PO DAILY 06/24/21 11/06/21 History [Megared [place]-3 Krill 750 mg] Multivitamins, Thera [Multivitamin 1 tab PO DAILY 06/24/21 11/06/21 History (formulary)] Pravastatin Sodium [Pravachol] 40 mg PO HS 06/24/21 11/06/21 History HYDROcodone/APAP 5-325MG [[place] 1 tab PO Q6HR PRN 3 Days #32 tab 07/01/21 11/06/21 Rx 5-325] MDD never took any Allergies Allergy/AdvReac Type Severity Reaction Status Date / Time Sulfa (Sulfonamide Allergy Rash/Hives Verified 11/06/21 14:54 Antibiotics) codeine AdvReac Nausea & Verified 11/06/21 14:54 Vomiting Physical Exam Osteopathic Statement: *. No significant issues noted on an osteopathic structural exam other than those noted in the History and Physical/Consult. Vitals: Vital Signs Temp Pulse Resp BP Pulse Ox 11/11/21 20:39 97.8 F 89 16 154/79 98 11/11/21 17:00 92 145/85 98 11/11/21 16:45 89 131/82 98 11/11/21 16:30 92 186/81 98 11/11/21 16:15 83 151/84 97 11/11/21 16:00 86 166/94 97 11/11/21 15:45 86 171/90 97 11/11/21 15:35 97.6 F 87 16 181/82 98 11/11/21 15:25 71 18 173/82 97 11/11/21 15:19 75 18 173/81 97 11/11/21 15:07 79 18 179/84 97 11/11/21 15:04 73 18 206/95 97 11/11/21 14:49 69 16 211/107 97 11/11/21 14:34 97.0 F L 71 16 190/88 100 11/11/21 12:10 63 14 142/69 100 11/11/21 11:30 98.8 F 76 20 177/84 97 Intake and Output 11/11/21 11/11/21 11/11/21 06:59 14:59 22:59 Intake Total 1501 296 Output Total 50 Balance 1451 296 Intake: IV 1501 Oral 296 Output: Estimated Blood Loss 50 Other: # Voids 1 Weight 90.4 kg 90.4 kg
[2021-11-11] MEDS: ACETAMINOPHEN TAB 325 MG TAB PO PRN (22:58)
[2021-11-12] MEDS: ACETAMINOPHEN TAB 325 MG TAB PO PRN (07:09)
[2021-11-12 07:51] VITALS: BP 159/75; PULSE 94; RESP 16; TEMP 97.6
[2021-11-12] MEDS: LACTATED RINGERS 1,000 ML IV SCH (08:30)
[2021-11-12] MEDS: SODIUM CHLORIDE 0.9% 1,000 ML IV SCH (08:49)
[2021-11-12] MEDS ORDERED: CHOLECALCIFEROL 25 MCG (1000 IU) TABLET PO SCH (09:00)
[2021-11-12] MEDS ORDERED: [UNRECOGNIZED DRUG - OTHER] PO SCH (09:00)
[2021-11-12] MEDS ORDERED: hydroCHLOROthiazide 12.5 MG CAP PO SCH (09:00)
[2021-11-12] MEDS ORDERED: ENOXAPARIN 40 MG/0.4 ML SYRINGE SQ SCH (09:00)
[2021-11-12] MEDS ORDERED: MULTIVITAMINS, THERA 1 EACH TAB PO SCH (09:00)
[2021-11-12 09:17] LABS: Basophils # (A) 0.02 X 10*3/uL (0.00-0.10); Basophils % (A) 0.3 %; Eosinophils # (A) 0.01 X 10*3/uL (0.04-0.35); Eosinophils % (A) 0.1 %; HCT 36.3 % (37.2-46.3); HGB 11.6 g/dL (12.0-15.0); Immature Grans, Automated 0.3 %; Lymphocytes # (A) 1.16 X 10*3/uL (0.90-5.00); Lymphocytes % (A) 16.4 %; MCH 26.9 pg (27.0-32.0); Mean Platelet Volume 9.3 fL (9.5-12.2); Monocytes # (A) 1.07 X 10*3/uL (0.20-1.00); Monocytes % (A) 15.1 %; NRBC Per 100 WBC 0 /100 WBCS (0.0-0.0); Neutrophils # (A) 4.81 X 10*3/uL (1.80-7.70); Neutrophils % (A) 67.8 %; Platelet Count 218 X 10*3/uL (140-440); RBC 4.32 X 10*6/uL (4.10-5.20); RDW 14.7 % (11.5-14.5); WBC 7.09 X 10*3/uL (4.50-10.00)
--- NOTE | 2021-11-12 09:25 | P.PN ---
Progress Note - Text Progress Note Date: 11/12/21 (937) Anesthesiology Postop day 1 status post total knee arthroplasty with adductor canal catheter. Patient doing well. VAS 3 or 4 out of 10. Gross strength intact in lower extremity. Afebrile. Denies alterations in sensorium. Catheter site intact. Heart regular rate Lungs nonlabored Abdomen nondistended Assessment: Postop day 1 status post total knee arthroplasty with adductor canal catheter Plan: All questions answered. Maintain catheter 2 more days with patient removal at home. Instructions were given at discharge.
--- NOTE | 2021-11-12 09:49 | P.PN ---
Subjective Progress Note Date: 11/12/21 Principal diagnosis: Status post right total knee arthroplasty Patient evaluated today at bedside, she is in her hospital chair. She's ambulated very well with physical therapy. Pain is well-controlled currently. She denies any headaches, lightheadedness, chest pain or shortness of breath. Objective - Vital Signs Vital signs: Vital Signs Temp 97.6 F 11/12/21 07:50 Pulse 94 11/12/21 07:50 Resp 16 11/12/21 07:50 BP 159/75 11/12/21 07:50 Pulse Ox 97 11/12/21 07:50 FiO2 Intake & Output 11/11/21 11/12/21 11/12/21 18:59 06:59 18:59 Intake Total 1797 600 296 Output Total 50 Balance 1747 600 296 Weight 90.4 kg Intake: IV 1501 Intake, IV Titration 600 Amount Sodium Chloride 0.9% 1, 500 000 ml @ 50 mls/hr IV . Q20H YADIRA Rx#:[id number] ceFAZolin 2 gm In Sodium 100 Chloride 0.9% 50 ml @ 100 mls/hr IVPB Q8H YADIRA Rx#: [id number] Oral 296 296 Output: Estimated Blood Loss 50 Other: Voiding Method Bedside Commode # Voids 1 2 # Bowel Movements 0 - Exam Right lower extremity: Incision is clean, dry, and intact. The foam tape is in good condition. There is minimal soft tissue swelling and ecchymosis surrounding the medial and lateral aspects of the incision. Calf is soft, no tenderness with palpation. Plantar flexion, dorsiflexion, EHL, FHL are intact. Sensory exam to light touch throughout the extremity is intact, dorsal pedis pulses 2+. - Labs CBC & Chem 7: 11/12/21 06:33 Labs: Abnormal Lab Results - Last 24 Hours (Table) 11/12/21 Range/Units 06:33 Hgb 11.6 L (12.0-15.0) g/dL Hct 36.3 L (37.2-46.3) % MCH 26.9 L (27.0-32.0) pg RDW 14.7 H (11.5-14.5) % MPV 9.3 L (9.5-12.2) fL Monocytes # 1.07 H (0.20-1.00) X 10*3/uL Eosinophils # 0.01 L (0.04-0.35) X 10*3/uL Assessment and Plan Assessment: Postoperative day #1 status post right total knee arthroplasty Plan: Pain control, plan for discharge home on [place] 5 mg/325 mg GI and DVT prophylaxis, aspirin 81 mg twice a day for 30 days Wound care instructions were discussed, this concluded bandage instructions, showering instructions and icing and elevating Home physical therapy and nursing after discharge Medical recommendations Discharge planning: plan for discharge home today Time with Patient: Less than 30
--- NOTE | 2021-11-12 09:55 | P.DS ---
Providers Date of admission: 11/11/2021 Expected date of discharge: 11/12/21 Attending physician: David Lee Consults: 11/11/21 14:13 Consult Physician Routine Consulting Provider: Venessa Thrasher Consult Reason/Comments: Medical management Do you want consulting provider notified?: Yes Primary care physician: Cha Peterson [facility] Hospital Course: Date of admission: 11/11/2021 Date of discharge: 11/12/2021 Admission diagnosis: Status post right total knee arthroplasty Discharge diagnosis: Same Attending physician: Dr. Lee Surgical procedures: Right total knee arthroplasty Brief history: Patient is a 76-year-old female with a history of progressive primary right knee osteoarthritis. At this point patient has failed conservative treatment measures and has opted to proceed with a elective right total knee arthroplasty. Hospital course: Details of patient's surgery can be found in operative report. Patient tolerated the procedure well and was subsequently transported to orthopedic floor. Patient's orthopeidc and medical care was provided daily. Patient had daily laboratory tests performed for evaluation of overall blood counts. Patient had daily physical therapy to include strengthening range of motion as well as education with walker ambulation. Patient was treated with Lovenox for their postoperative DVT prophylaxis during their inpatient stay. Patient was noted to have a relatively uneventful postoperative course. Patient reported satisfactory pain control with oral pain medications by postoperative day 0. Patient showed satisfactory progress with physical therapy. Patient moved steadily through the program and had no difficulty meeting the goals by postoperative day 1. Given patient's otherwise satisfactory course and having met physical therapy goals, plan is to discharge patient home on postoperative day 1. Discharge condition/disposition: Patient will be discharged home in stable condition. Discharge medications: Instructions are given on resumption of patient's normal daily medications per primary care recommendation, in addition patient will be prescribed Mertens 5 mg/325 mg, Colace 100mg, aspirin 81 mg. Discharge instructions: 1. Wound care and infection precautions, keep incision dry and covered while showering, no lotions, creams, moisturizers. No soaking, tubs, pools, hottubs. Do not scrub over the incision. 2. Weight-bear as tolerated with walker / cane until follow-up. 3. Ice and elevate when necessary. Do not exceed 20 minutes per hour with ice pack. 4. Utilize compression sleeve until seen at first follow up appointment. 5. Visiting nursing care. 6. Home physical therapy including home CPM. 7. Pain meds and anticoagulants per prescription. 8. Pain medication has potential to cause constipation. Increase oral fluid and fiber intake. Contact primary care provider if you have not had a bowel movement within 48 hours after discharge 9. No anti-inflammatory medication until discussed at first post operative visit, this including Motrin, Aleve, Mobic, Diclofenac. 10. Follow up in office at 2 weeks postop with Ricardo Keller PA-C/Everette Rawls 11. Follow up with your primary care doctor 7-10 days after discharge. 12. Contact [facility] with any questions, . Procedures: Right total knee arthroplasty Patient Condition at Discharge: Good Plan - Discharge Summary Discharge Rx Participant: No New Discharge Prescriptions: New Aspirin [Adult Low Dose Aspirin EC] 81 mg PO BID #60 tab Docusate [Colace] 100 mg PO DAILY #30 capsule HYDROcodone/APAP 5-325MG [Mertens 5-325] 1 tab PO Q6HR PRN #28 tab PRN Reason: Pain Discontinued HYDROcodone/APAP 5-325MG [Mertens 5-325] 1 tab PO Q6HR PRN 3 Days #32 tab MDD never took any PRN Reason: Pain No Action Multivitamins, Thera [Multivitamin (formulary)] 1 tab PO DAILY Hydrochlorothiazide [hydroCHLOROthiazide] 12.5 mg PO DAILY Pravastatin Sodium [Pravachol] 40 mg PO HS Cholecalciferol [Vitamin D3 (25 Mcg = 1000 Iu)] 25 mcg PO DAILY Krill/Om-3/Dha/Epa/Phospho/Ast [Megared [place]-3 Krill 750 mg] 1 each PO DAILY Discharge Medication List Cholecalciferol [Vitamin D3 (25 Mcg = 1000 Iu)] 25 mcg PO DAILY 06/24/21 [History] Hydrochlorothiazide [hydroCHLOROthiazide] 12.5 mg PO DAILY 06/24/21 [History] Krill/Om-3/Dha/Epa/Phospho/Ast [Megared [place]-3 Krill 750 mg] 1 each PO DAILY 06/24/21 [History] Multivitamins, Thera [Multivitamin (formulary)] 1 tab PO DAILY 06/24/21 [History] Pravastatin Sodium [Pravachol] 40 mg PO HS 06/24/21 [History] Aspirin [Adult Low Dose Aspirin EC] 81 mg PO BID #60 tab 11/12/21 [Rx] Docusate [Colace] 100 mg PO DAILY #30 capsule 11/12/21 [Rx] HYDROcodone/APAP 5-325MG [Mertens 5-325] 1 tab PO Q6HR PRN #28 tab 11/12/21 [Rx] Follow up Appointment(s)/Referral(s): Jame Keller PAC [PH[employer]IC[employer]] - 11/27/21 1:50 pm Activity/Diet/Wound Care/Special Instructions: Orthopedic Discharge Instructions: 1. Wound care and infection precautions, keep incision dry and covered while showering, no lotions, creams, moisturizers. No soaking, pools, hot tubs. Do not scrub over incision. 2. Weight-bear as tolerated with walker / cane until follow-up. 3. Ice and elevate when necessary. Do not exceed 20 minutes per hour with ice pack. 4. Utilize compression sleeve until seen at first follow up appointment. 5. Pain meds and anticoagulants per prescription. 6. Pain medication has potential to cause constipation. Increase oral fluid and fiber intake. Contact primary care provider if you have not had a bowel movement within 48 hours after discharge. 7. No anti-inflammatory medication until discussed at first post operative visit, this including Motrin, Aleve, Mobic, Diclofenac. 8. Follow up in office at 2 weeks postop with Ricardo Keller PA-C/Everette Freitas PA-C 9. Follow up with your primary care doctor 7-10 days after discharge. 10. Contact [facility] with any questions, . Wound care instructions: 1. Okay to remove bandage on 11/18/2021 2. Keep incision covered and dry while showering, okay shower directly over the incision after removal of bandage Discharge Disposition: HOME WITH HOME HEALTH SERVICES
[2021-11-12] MEDS: HYDROcodone/APAP 5-325MG 1 EACH TAB PO PRN (11:02)
--- NOTE | 2021-11-12 11:26 | P.PN ---
Subjective Progress Note Date: 11/12/21 Hospital course: Patient is a very pleasant 76-year-old female with a past medical history of hypertension and hyperlipidemia. She is currently admitted under orthopedic surgery team status post right total knee arthroplasty completed by Dr. Lee on 11/11/21. We have been consulted for continued medical management throughout patient's hospitalization. Physical exam: Patient was seen and fully evaluated at bedside this morning. Patient is resting comfortably and reports controlled postoperative pain with current oral pain of dictation regimen. Patient denies having any headache, lightheadedness, dizziness, chest pain, palpitations, shortness of breath, or any other co mplaints. Postoperative hemoglobin stable at 11.6. Patient medically stable for discharge once cleared by primary admitting orthopedic surgery team. Vital signs reviewed and stable. General: Nontoxic, no distress and appears stated age. Derm: Skin warm and dry, normal coloration for ethnicity. Head: Atraumatic, normocephalic and symmetric. Eyes: EOMs intact, no lid lag, and anicteric sclera Mouth: no lip lesions, mucus membranes moist Cardiovascular: regular rate and rhythm with normal S1S2, no murmur, positive posterior tibial pulses bilaterally, and cap refill < 2 seconds. Lungs: Respirations even, regular, and unlabored on room air. Lungs CTA bilaterally, no rhonchi, no rales, no wheezing, and no accessory muscle usage. Abdominal: soft, nontender to palpation, no guarding, no appreciable organomegaly Ext: ROM intact. No gross muscle atrophy, no edema, no contractures Neuro: Speech clear, face symmetrical and CN II-XII grossly intact with no noted focal neuro deficits Psych: Alert and oriented to person, place, time, and situation. Appropriate and pleasant affect. Assessment and Plan of Care: Acute postoperative blood loss, expected finding -Hemoglobin stable 11.6. Status post right total knee arthroplasty -Management per primary admitting orthopedic surgery team including DVT prophylaxis, pain management, weightbearing, and PT/OT. -DVT prophylaxis with Lovenox. Hypertension Monitor vital signs and continue daily medication regimen with hydrochlorothiazide. Hyperlipidemia Continue daily medication management with pravastatin. Thank you for allowing us to participate in the care of this pleasant patient. Do not hesitate to contact us with questions. Someone can be reached from the [facility] hospitalist group all hours of the day at [phone] or via [employer]. Gabriel Campoverde NP rendered care for this patient independently, reviewed the findings and plan as documented in the note above. I did not physically speak with or examine the patient on this date. Objective - Vital Signs Vital signs: Vital Signs Temp 97.6 F 11/12/21 07:50 Pulse 94 11/12/21 07:50 Resp 16 11/12/21 07:50 BP 159/75 11/12/21 07:50 Pulse Ox 97 11/12/21 07:50 FiO2 Intake & Output 11/11/21 11/12/21 11/12/21 18:59 06:59 18:59 Intake Total 1797 600 296 Output Total 50 Balance 1747 600 296 Weight 90.4 kg Intake: IV 1501 Intake, IV Titration 600 Amount Sodium Chloride 0.9% 1, 500 000 ml @ 50 mls/hr IV . Q20H YADIRA Rx#:[id number] ceFAZolin 2 gm In Sodium 100 Chloride 0.9% 50 ml @ 100 mls/hr IVPB Q8H YADIRA Rx#: [id number] Oral 296 296 Output: Estimated Blood Loss 50 Other: Voiding Method Bedside Commode # Voids 1 2 # Bowel Movements 0 - Labs CBC & Chem 7: 11/12/21 06:33 Labs: Abnormal Lab Results - Last 24 Hours (Table) 11/12/21 Range/Units 06:33 Hgb 11.6 L (12.0-15.0) g/dL Hct 36.3 L (37.2-46.3) % MCH 26.9 L (27.0-32.0) pg RDW 14.7 H (11.5-14.5) % MPV 9.3 L (9.5-12.2) fL Monocytes # 1.07 H (0.20-1.00) X 10*3/uL Eosinophils # 0.01 L (0.04-0.35) X 10*3/uL
[2021-11-12] MEDS ORDERED: PRAVASTATIN SODIUM 40 MG TAB PO SCH (21:00)
== END 2021-11-12 13:00 | disposition home health service (06) ==
LOC: OR 10:42 → 4SSUR 14:25 → OR 11-12 13:00
PROVIDERS: ATTEND Orthopaedic Surgery
DX: M17.11 Unilateral primary osteoarthritis, right knee (principal); E78.5 Hyperlipidemia, unspecified; I10 Essential (primary) hypertension; Z96.643 Presence of artificial hip joint, bilateral; Z79.899 Other long term (current) drug therapy; Z88.5 Allergy status to narcotic agent; Z88.2 Allergy status to sulfonamides; Z88.8 Allergy status to other drugs, medicaments and biological substances; Z90.49 Acquired absence of other specified parts of digestive tract; Z98.890 Other specified postprocedural states; Z90.710 Acquired absence of both cervix and uterus; Z90.89 Acquired absence of other organs; Z98.42 Cataract extraction status, left eye; Z98.41 Cataract extraction status, right eye
CPT/HCPCS: 97161; 64999; 64448; 76942; 85025; 88300; 73560; 27447; C1776; C1713 ×2; J2250; J0360; J1100; J0690 ×3; J2405; J1650; J3010; J2795 ×2; J2370; J0330; J2704; J1170

== ENCOUNTER → 2023-03-26 | Day surgery (SDC) | payer MEDICARE ==
[2023-03-23 15:14] VITALS: BMI 25.7
[~2023-03-26] MED LIST changes: -ACETAMINOPHEN TAB 500 MG TAB PO PRN; +LACTATED RINGERS 1,000 ML IV SCH; +LIDOCAINE 1% INJ 10MG/ML (20 ML MDV) ONE; -MELOXICAM 7.5 MG TAB PO PRN; -ONDANSETRON 4 MG/2 ML VIAL IVP ONE; +ONDANSETRON 4 MG/2 ML VIAL IVP PRN; +PROPOFOL 10 MG/ML 20 ML VIAL IV ONE; -TRANEXAMIC ACID IN NACL,ISO-OS 1,000 MG in SALINE 1 100ML.BAG IVPB PRN; -fentaNYL (PF) 50 MCG/ML 2 ML AMP IV PRN
[2023-03-26 09:30] VITALS: TEMP 98.2
--- NOTE | 2023-03-26 10:13 | P.GSHP ---
History of Present Illness H&P Date: 03/26/23 Chief Complaint: Screening colonoscopy This a 77-year-old female presents today for screening colonoscopy. Patient denies a significant GI complaints. 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 prolapse, right hip repl. Past Anesthesia/Blood Transfusion Reactions: Previous Problems w/ Anesthesia, Motion Sickness Additional Past Anesthesia/Blood Transfusion Reaction / Comment(s): room spins, sensitive to medications Past Psychological History: No Psychological Hx Reported Smoking Status: Never smoker Past Alcohol Use History: Rare Past Drug Use History: None Reported Medications and Allergies Home Medications Medication Instructions Recorded Confirmed Type Cholecalciferol [Vitamin D3 (25 25 mcg PO DAILY 06/24/21 03/26/23 History Mcg = 1000 Iu)] Krill/Om-3/Dha/Epa/Phospho/Ast 1 each PO DAILY 06/24/21 03/26/23 History [Megared [place]-3 Krill 750 mg] Multivitamins, Thera [Multivitamin 1 tab PO DAILY 06/24/21 03/26/23 History (formulary)] Pravastatin Sodium [Pravachol] 40 mg PO HS 06/24/21 03/26/23 History hydroCHLOROthiazide 12.5 mg PO DAILY 06/24/21 03/26/23 History Aspirin [Adult Low Dose Aspirin EC] 81 mg PO BID #60 tab 11/12/21 03/26/23 Rx Allergies Allergy/AdvReac Type Severity Reaction Status Date / Time Sulfa (Sulfonamide Allergy Rash/Hives Verified 03/26/23 09:09 Antibiotics) codeine AdvReac Nausea & Verified 03/26/23 09:09 Vomiting Surgical - Exam Vital Signs Temp Pulse Resp BP Pulse Ox 98.2 F 92 18 182/87 99 03/26/23 09:18 03/26/23 09:18 03/26/23 09:18 03/26/23 09:18 03/26/23 09:18 - General well developed, well nourished, no distress - Eyes PERRL - ENT normal pinna - Neck no masses - Respiratory normal expansion - Cardiovascular Rhythm: regular - Abdomen Abdomen: soft, non tender Assessment and Plan Assessment: We'll perform screening colonoscopy.
--- NOTE | 2023-03-26 10:25 | P.OP ---
Date of Procedure: 03/26/23 Preoperative Diagnosis: Screening colonoscopy Postoperative Diagnosis: Mild diverticulosis Procedure(s) Performed: Colonoscopy Anesthesia: MAC Surgeon: Nithin Rodriguez Pathology: none sent Condition: stable Disposition: PACU Description of Procedure: The patient's placed on the endoscopy table in the lateral position. Received IV sedation. Digital rectal exam performed. This revealed no abnormalities. Flexible colonoscope was then placed patient anus and passed throughout the colon. The scope then passed into the proximal right colon secondary to tortuosity of the colon. Several attempts pain to maneuver the colonoscope however this impossible. This point scope withdrawn. The visualized right colon appeared normal. The transverse colon appeared normal. The descending and sigmoid colon had mild diverticular changes. Scope was then brought back the rectum and this appeared normal. Scope was withdrawn for patient.
[2023-03-26 11:31] VITALS: BP 145/84; PULSE 75; RESP 20
== END | disposition home or self-care (01) ==
LOC: ORWHC2ENDO 08:43
PROVIDERS: ATTEND Surgery
DX: Z12.11 Encounter for screening for malignant neoplasm of colon (principal); K57.30 Diverticulosis of large intestine without perforation or abscess without bleeding; E78.5 Hyperlipidemia, unspecified; M19.90 Unspecified osteoarthritis, unspecified site; F10.90 Alcohol use, unspecified, uncomplicated; Z79.82 Long term (current) use of aspirin; Z88.1 Allergy status to other antibiotic agents; Z88.2 Allergy status to sulfonamides; Z88.5 Allergy status to narcotic agent; Z79.899 Other long term (current) drug therapy; Z88.8 Allergy status to other drugs, medicaments and biological substances
CPT/HCPCS: J2001; J2704; G0121